=== PATIENT | female | born 1990 | race African-American/Black ===

== ENCOUNTER 2016-08-09 12:58 | Emergency (ER) | payer OTHER ==
[~2016-08-09] VITALS: Ht 160 cm; Wt 85.8 kg
[2016-08-09 14:12] VITALS: BP 119/73
== END 2016-08-09 14:12 | disposition home or self-care (01) ==
LOC: EME 12:58
PROC: 09C0XZZ Extirpation of Matter from Right External Ear, External Approach (ICD-10-PCS; principal; 2016-08-09)
DX: T16.1XXA Foreign body in right ear, initial encounter (principal)
CPT/HCPCS: 99281; 99283

== ENCOUNTER 2016-11-06 18:23 | Emergency (ER) | payer OTHER ==
[~2016-11-06] VITALS: Ht 160 cm; Wt 89.0 kg
[2016-11-06 18:56] LABS: HEMATOCRIT 40.1 % (36.0-46.0); MCH 25.7 PG (29.0-34.0); MCHC 32.2 G/DL (30.0-36.0); MCV 79.9 FL (83-99); MEAN PLAT.VOLUME 10.4 uM^3 (9.5-12.4); PLATELET COUNT 297 K/uL (156-360); RBC DIS.WIDTH-CV 13.7 % (11.8-14.6); RBC DIS.WIDTH-SD 39.8 % (39-53); RED BLOOD COUNT 5.02 M/uL (3.80-5.20); WHITE BLOOD COUNT 6.3 K/uL (4.1-10.2)
[2016-11-06 19:05] LABS: CHLORIDE 109 mEq/L (99-109); POTASSIUM 3.6 mEq/L (3.7-5.4); SODIUM 140 mEq/L (136-147)
[2016-11-06 19:07] LABS: GLUCOSE 91 mg/dL (70-99)
[2016-11-06 19:08] LABS: ANION GAP 9 MEQ/L (2-14)
[2016-11-06 19:09] LABS: TOTAL BILIRUBIN 0.2 mg/dL (0.0-1.0)
[2016-11-06 19:10] LABS: ALKALINE PHOSPHATASE 40 IU/L (3-129)
[2016-11-06 19:11] LABS: GFR ESTIMATE (CALCULATED) > 59 mL/min/
[2016-11-06 19:12] LABS: UREA NITROGEN (BUN) 20 mg/dL (9-23)
[2016-11-06 19:14] LABS: LIPASE 49 U/L (1.0-51.0)
[2016-11-06 19:20] LABS: QUANTITATIVE HCG < 4.0 MIU/ML
[2016-11-06 19:58] LABS: ADD MIUA? YES; BILIRUBIN NEGATIVE; BLOOD NEGATIVE; COLOR YELLOW ((YELLOW)); GLUCOSE (STRIP) NEGATIVE; KETONES NEGATIVE; LEUKOCYTES TRACE; NITRITE NEGATIVE; PROTEIN (STRIP) NEGATIVE; SPECIFIC GRAVITY 1.027 (1.000-1.030); UROBILINOGEN 0.2 MG/DL (0.2-1.0)
[2016-11-06 20:01] LABS: BACTERIA RARE /HPF; EPITHELIAL CELLS RARE /HPF; MUCUS TRACE /LPF; RED BLOOD CELLS 0-5 /HPF (0-5); UCUL ADDED? NO; WHITE BLOOD CELLS 0-5 /HPF (0-5)
[2016-11-06] MEDS ORDERED: PEPCID AC20 MG PO (20:33)
[2016-11-06 21:01] VITALS: BP 132/79
== END 2016-11-06 21:02 | disposition home or self-care (01) ==
LOC: EME 18:23
PROVIDERS: Physician Assistant
DX: R10.13 Epigastric pain (principal)
CPT/HCPCS: 74176; 80053; 81003; 83690; 84702; 85027; 99281; 99284

== ENCOUNTER 2017-01-30 15:42 | Emergency (ER) | payer OTHER ==
[~2017-01-30] VITALS: Ht 160 cm; Wt 85.5 kg
[~2017-01-30 15:42] MED LIST: PEPCID AC20 MG PO
[2017-01-30 17:23] LABS: EOSINOPHIL (%) 3.1 % (0-5); EOSINOPHIL COUNT 0.2 K/uL (0-0.3); HEMATOCRIT 35.6 % (36.0-46.0); IMMATURE GRANULOCYTE (%) 0.2 % (0.0-0.7); INSTRUMENT ABS NEUTROPHIL CT 3.2 K/uL; LYMPHOCYTE COUNT 2.2 K/uL (1.0-2.8); MCH 25.9 PG (29.0-34.0); MCHC 32.3 G/DL (30.0-36.0); MCV 80.2 FL (83-99); MEAN PLAT.VOLUME 10.4 uM^3 (9.5-12.4); MONOCYTE (%) 7.4 % (3-12); MONOCYTE COUNT 0.5 K/uL (0-0.8); NEUTROPHIL (%) 52.2 % (45-76); NEUTROPHIL COUNT 3.2 K/uL (1.8-6.4); PLATELET COUNT 272 K/uL (156-360); RBC DIS.WIDTH-CV 13.8 % (11.8-14.6); RBC DIS.WIDTH-SD 40.1 % (39-53); RED BLOOD COUNT 4.44 M/uL (3.80-5.20); WHITE BLOOD COUNT 6.1 K/uL (4.1-10.2)
[2017-01-30 17:32] LABS: CHLORIDE 109 mEq/L (99-109)
[2017-01-30 17:33] LABS: POTASSIUM 3.9 mEq/L (3.7-5.4); SODIUM 138 mEq/L (136-147)
[2017-01-30 17:35] LABS: GLUCOSE 98 mg/dL (70-99)
[2017-01-30 17:36] LABS: ANION GAP 7 MEQ/L (2-14)
[2017-01-30 17:37] LABS: TOTAL BILIRUBIN 0.2 mg/dL (0.0-1.0)
[2017-01-30 17:38] LABS: ALKALINE PHOSPHATASE 35 IU/L (3-129); GFR ESTIMATE (CALCULATED) > 59 mL/min/
[2017-01-30 17:40] LABS: UREA NITROGEN (BUN) 10 mg/dL (9-23)
[2017-01-30 17:42] LABS: ADD MIUA? NO; BILIRUBIN NEGATIVE; BLOOD NEGATIVE; COLOR YELLOW ((YELLOW)); GLUCOSE (STRIP) NEGATIVE; KETONES NEGATIVE; LEUKOCYTES NEGATIVE; NITRITE NEGATIVE; PROTEIN (STRIP) NEGATIVE; SPECIFIC GRAVITY 1.015 (1.000-1.030); UROBILINOGEN 0.2 MG/DL (0.2-1.0)
[2017-01-30 17:42] LABS: LIPASE 48 U/L (1.0-51.0)
[2017-01-30 17:48] LABS: QUANTITATIVE HCG 1526.7 MIU/ML
[2017-01-30] MEDS ORDERED: PRENATAL TABLE1 EAC3 PO (20:12)
[2017-01-30 20:24] VITALS: BP 115/63
== END 2017-01-30 20:28 | disposition home or self-care (01) ==
LOC: EME 15:42
PROVIDERS: Physician Assistant
DX: R10.2 Pelvic and perineal pain (principal); O26.899 Other specified pregnancy related conditions, unspecified trimester
CPT/HCPCS: 76801; 80053; 81003; 83690; 84702; 85025; 99281; 99284

== ENCOUNTER 2017-03-06 15:46 | Emergency (ER) | payer OTHER ==
[~2017-03-06] VITALS: Ht 160 cm; Wt 87.0 kg
[~2017-03-06 15:46] MED LIST changes: +PRENATAL TABLE1 EAC3 PO
[2017-03-06 16:54] LABS: EOSINOPHIL (%) 2.7 % (0-5); EOSINOPHIL COUNT 0.2 K/uL (0-0.3); HEMATOCRIT 33.2 % (36.0-46.0); IMMATURE GRANULOCYTE (%) 0.3 % (0.0-0.7); INSTRUMENT ABS NEUTROPHIL CT 4.1 K/uL; MCH 25.6 PG (29.0-34.0); MCHC 32.2 G/DL (30.0-36.0); MCV 79.4 FL (83-99); MEAN PLAT.VOLUME 10.4 uM^3 (9.5-12.4); MONOCYTE (%) 7.9 % (3-12); MONOCYTE COUNT 0.6 K/uL (0-0.8); NEUTROPHIL (%) 59.9 % (45-76); NEUTROPHIL COUNT 4.1 K/uL (1.8-6.4); PLATELET COUNT 265 K/uL (156-360); RBC DIS.WIDTH-CV 13.8 % (11.8-14.6); RBC DIS.WIDTH-SD 40.3 % (39-53); RED BLOOD COUNT 4.18 M/uL (3.80-5.20); WHITE BLOOD COUNT 6.9 K/uL (4.1-10.2)
[2017-03-06 17:06] LABS: ADD MIUA? YES; BILIRUBIN NEGATIVE; BLOOD NEGATIVE; COLOR YELLOW ((YELLOW)); GLUCOSE (STRIP) NEGATIVE; KETONES NEGATIVE; LEUKOCYTES LARGE; NITRITE NEGATIVE; PROTEIN (STRIP) 30; UROBILINOGEN 0.2 MG/DL (0.2-1.0)
[2017-03-06 17:12] LABS: CHLORIDE 108 mEq/L (99-109); POTASSIUM 3.8 mEq/L (3.7-5.4); SODIUM 138 mEq/L (136-147)
[2017-03-06 17:13] LABS: GLUCOSE 90 mg/dL (70-99)
[2017-03-06 17:15] LABS: ANION GAP 10 MEQ/L (2-14)
[2017-03-06 17:17] LABS: GFR ESTIMATE (CALCULATED) > 59 mL/min/
[2017-03-06 17:18] LABS: UREA NITROGEN (BUN) 12 mg/dL (9-23)
[2017-03-06 17:19] LABS: BACTERIA RARE /HPF; CASTS NONE SEEN /LPF; EPITHELIAL CELLS 1+ /HPF; MUCUS NONE SEEN /LPF; WHITE BLOOD CELLS 0-5 /HPF (0-5)
[2017-03-06 17:46] LABS: QUANTITATIVE HCG 56774.9 MIU/ML
[2017-03-06 21:31] VITALS: BP 133/84
== END 2017-03-06 21:32 | disposition home or self-care (01) ==
LOC: EME 15:46
PROVIDERS: Emergency Medicine
DX: O02.1 Missed abortion (principal); R11.2 Nausea with vomiting, unspecified; Z3A.09 9 weeks gestation of pregnancy
CPT/HCPCS: 76770; 76801; 80048; 81003; 84702; 85025; 86900; 86901; 87086; 99281; 99285